=== PATIENT | female | born 1965 | race Caucasian/White ===

== ENCOUNTER 2016-10-09 11:48 | Emergency (ER) | payer MEDICARE, BC ==
[~2016-10-09 11:48] MED LIST: ASPIRIN81 MG PO; KEFLEX500 M2 PO; METOPROLOL SUCC25 MG PO; NEURONTIN300 MG PO; PERCOCET5/325 PO; ZESTORETIC PO; ZESTORETIC1 TAB DOB; ZYRTEC PO; [UNRECOGNIZED DRUG - REMARK]
== END 2016-10-09 11:57 | disposition home or self-care (01) ==
LOC: SED 11:48
DX: K13.0 Diseases of lips (principal); I10 Essential (primary) hypertension; Z90.49 Acquired absence of other specified parts of digestive tract; Z79.899 Other long term (current) drug therapy
CPT/HCPCS: 99282